=== PATIENT | female | born 2000 | race Caucasian/White ===

== ENCOUNTER 2021-05-14 23:10 | Emergency (ER) | payer BC, OTHER ==
[~2021-05-14 23:10] MED LIST: Sodium Chloride 0.9% 1,000 ML BAG ONE; Sodium Chloride 0.9% 500 ML BAG ONE
[2021-05-14] MEDS ORDERED: Morphine 4 MG/ML VIAL ONE (23:59)
[2021-05-14] MEDS ORDERED: Ondansetron PF 4 MG/2 ML Vial ONE (23:59)
[2021-05-14] MEDS ORDERED: Morphine 2 MG/ML VIAL ONE (23:59)
[2021-05-15 00:08] LABS: BHCG - Serum Negative (NEGATIVE); Pregs Control Background? CLEAR/WHITE (CLR/WHITE); Pregs Control Bar Appear? YES (CONTROL BAR)
[2021-05-15 00:14] LABS: #Basophils 0.1 thou/uL (0.0-0.2); #Eosinphils 0.1 thou/uL (0.0-0.7); #Lymphocytes 2.2 thou/uL (1.20-3.40); #Monocytes 0.6 thou/uL (0.11-0.59); #Neutrophils 6.9 thou/uL (1.40-6.50); %Basophils 1.4 % (0.0-1.0); %Eosinophils 0.8 % (0.0-10.0); %Lymphocytes 22.1 % (28.0-48.0); %Monocytes 5.7 % (0.0-4.0); Hemoglobin 14.3 g/dL (12.0-16.0); Mean Corpuscular HGB CONC 34.2 g/dL (32.0-36.0); Mean Corpuscular Hemoglobin 32.1 pg (25.0-35.0); Mean Platelet Volume 12.9 fL (7.4-10.4); Platelet Count 301 thou/uL (130-400); Platelet Morphology Comment Appears Adequate; RBC Distribution Width 10.7 % (11.5-14.5); RBC Morphology Normal; Red Blood Cell (RBC) Count 4.47 mill/uL (4.00-5.20); White Blood Cell (WBC) Count 9.9 thou/uL (4.8-10.8)
[2021-05-15 00:19] LABS: ALT (SGPT) 13 U/L (8-55); AST (SGOT) 16 U/L (5-34); Albumin 4.6 g/dL (3.5-5.0); Alkaline Phosphatase 80 U/L (40-100); Anion Gap 17 mmol/L (10-20); BUN (Urea Nitrogen) 17 mg/dL (7.0-18.7); Bilirubin, Total 0.4 mg/dL (0.2-1.2); Calc. Creatinine Clearance 0 mL/min (70-130); Carbon Dioxide 25 mmol/L (22-29); Chloride 102 mmol/L (98-107); Globulin 3.5 g/dL (2.4-3.5); Glucose 110 mg/dL (70-105); Lipase 98 U/L (8-78); Potassium 3.6 mmol/L (3.5-5.1); Protein, Total 8.1 g/dL (6.0-8.3); Sodium 140 mmol/L (136-145)
[2021-05-15] MEDS ORDERED: Morphine 4 MG/ML VIAL ONE (01:16)
== END 2021-05-15 02:56 | disposition home or self-care (01) ==
LOC: MADERS 23:10
DX: K86.1 Other chronic pancreatitis (principal); Z79.891 Long term (current) use of opiate analgesic; Z79.899 Other long term (current) drug therapy
CPT/HCPCS: 80053; 83690; 84703; 85025; 96374; 96375; 96376; J2270; J2405; J7030; J7050

== ENCOUNTER 2022-01-13 19:06 | Emergency (ER) | payer BC ==
[2022-01-13] MEDS ORDERED: Morphine 4 MG/ML VIAL ONE ×2 (19:33→21:50)
[2022-01-13] MEDS ORDERED: Prochlorperazine 10 MG/2 ML VIAL ONE (19:34)
[2022-01-13] MEDS ORDERED: Sodium Chloride 0.9% 1,000 ML ONE ×2 (19:34→21:09)
[2022-01-13 20:09] LABS: Band 7 % (5-11); Eosinophils 1 % (0-10); Hemoglobin 13.3 g/dL (12.0-16.0); Lymphocytes 17 % (21-51); MDiff Complete? YES; Mean Corpuscular HGB CONC 31.4 g/dL (32.0-36.0); Mean Corpuscular Hemoglobin 30.7 pg (27.0-31.0); Mean Corpuscular Volume 97.7 fL (78.0-98.0); Mean Platelet Volume 12.9 fL (7.4-10.4); Monocytes 5 % (0-10); Neutrophil 70 % (42-75); Platelet Count 329 thou/uL (130-400); Platelet Morphology Comment Appears Adequate; RBC Distribution Width 11.1 % (11.5-14.5); RBC Morphology Normal; Red Blood Cell (RBC) Count 4.32 mill/uL (4.20-5.40); White Blood Cell (WBC) Count 9.5 thou/uL (4.8-10.8)
[2022-01-13 20:17] LABS: ALT (SGPT) 9 U/L (8-55); AST (SGOT) 16 U/L (5-34); Albumin 4.7 g/dL (3.5-5.0); Alcohol Less than 10 mg/dL (Less than 10); Alkaline Phosphatase 75 U/L (40-110); Anion Gap 20 mmol/L (10-20); BUN (Urea Nitrogen) 13 mg/dL (7.0-18.7); Bilirubin, Total 0.5 mg/dL (0.2-1.2); Calc. Creatinine Clearance 0 mL/min (70-130); Calcium 9.4 mg/dL (7.8-10.44); Carbon Dioxide 21 mmol/L (22-29); Chloride 103 mmol/L (98-107); Globulin 3.1 g/dL (2.4-3.5); Glucose 83 mg/dL (70-105); Lipase 74 U/L (8-78); Potassium 3.7 mmol/L (3.5-5.1); Protein, Total 7.8 g/dL (6.0-8.3); Sodium 140 mmol/L (136-145)
[2022-01-13 21:10] LABS: Bilirubin Small (Negative); Blood, Urine Small (Negative); Clarity Clear (Clear); Glucose, Urine (Dipstick) Negative (Negative); Ketone, Urine > or equal to 80 mg/dL (Negative); Leukocyte Negative (Negative); Nitrite Negative (Negative); Protein, Urine (Dipstick) Negative (Neg-Trace); Urobilinogen 0.2 mg/dL (Less than 2)
[2022-01-13 21:16] LABS: Specific Gravity, Urine 1.031 (1.002-1.036)
[2022-01-13 21:19] LABS: Bacteria/HPF 1+ HPF (None Seen); RBC/HPF 0-3 HPF (0-3); Transitional Epithelial 0-3 HPF (None Seen)
[2022-01-13] MEDS ORDERED: Ondansetron PF 4 MG/2 ML Vial ONE (21:53)
[2022-01-13] MEDS ORDERED: Ketorolac Tromethamine 30 MG/ML VIAL ONE (21:53)
== END 2022-01-13 22:22 | disposition home or self-care (01) ==
LOC: MADERS 19:06
DX: K85.90 Acute pancreatitis without necrosis or infection, unspecified (principal); R11.2 Nausea with vomiting, unspecified
CPT/HCPCS: 80053; 80307; 81003; 81015; 83605; 83690; 84478; 85025; 96374; 96375; 96376; J0780; J1885; J2270; J2405; J7050

== ENCOUNTER 2022-08-10 10:10 | Emergency (ER) | payer BC ==
[~2022-08-10 10:10] MED LIST changes: +Lactated Ringer's 1,000 ML BAG ONE; -Sodium Chloride 0.9% 1,000 ML BAG ONE; -Sodium Chloride 0.9% 500 ML BAG ONE
[2022-08-10] MEDS ORDERED: Lactated Ringer's 2,000 ML ONE (10:58)
[2022-08-10] MEDS ORDERED: Ondansetron PF 4 MG/2 ML Vial ONE (10:58)
[2022-08-10 11:33] LABS: ALT (SGPT) 67 U/L (8-55); AST (SGOT) 35 U/L (5-34); Albumin 5.5 g/dL (3.5-5.0); Alkaline Phosphatase 206 U/L (40-110); BUN (Urea Nitrogen) 13 mg/dL (7.0-18.7); Bilirubin, Total 0.3 mg/dL (0.2-1.2); Calc. Creatinine Clearance 0 mL/min (70-130); Calcium 9.7 mg/dL (7.8-10.44); Carbon Dioxide Less than 8 mmol/L (22-29); Chloride 100 mmol/L (98-107); Estimated GFR 34; Globulin 4.3 g/dL (2.4-3.5); Lipase 7 U/L (8-78); Magnesium 2.5 mg/dL (1.6-2.6); Protein, Total 9.8 g/dL (6.0-8.3); Sodium 133 mmol/L (136-145)
[2022-08-10 11:34] LABS: Band 7 % (5-11); CK (CPK) 56 U/L (29-168); Lymphocytes 5 % (21-51); MDiff Complete? YES; Magnesium 2.5 mg/dL (1.6-2.6); Mean Corpuscular HGB CONC 32.9 g/dL (32.0-36.0); Mean Corpuscular Hemoglobin 31.8 pg (27.0-31.0); Mean Corpuscular Volume 96.6 fl (78.0-98.0); Mean Platelet Volume 12.3 fL (7.4-10.4); Monocytes 5 % (0-10); Neutrophil 83 % (42-75); Platelet Count 449 10x3/uL (130-400); Platelet Morphology Comment Appears Increased; RBC Distribution Width 10.9 % (11.5-14.5); RBC Morphology Normal; Red Blood Cell (RBC) Count 5.02 mill/uL (4.20-5.40)
[2022-08-10 11:37] LABS: Glucose 664 mg/dL (70-105); Potassium 6.2 mmol/L (3.5-5.1)
[2022-08-10] MEDS ORDERED: INSULIN REGULAR IN 0.9 % NACL 100 UNIT/100 ML BAG ONE (11:42)
[2022-08-10 11:49] LABS: Bilirubin Small (Negative); Blood, Urine Small (Negative); Glucose, Urine (Dipstick) 500 mg/dL (Negative); Ketone, Urine > or equal to 80 mg/dL (Negative); Leukocyte Negative (Negative); Nitrite Negative (Negative); Protein, Urine (Dipstick) 100 mg/dL (Neg-Trace); Urobilinogen 0.2 mg/dL (Less than 2); pH, Urine 5.5 (5.0-9.0)
[2022-08-10 11:51] LABS: Pregnancy Test - Urine (BHCG) Negative (Negative); Pregu Control Background? CLEAR/WHITE (CLR/WHITE); Pregu Control Bar Appear? YES (CONTROL BAR); Specific Gravity 1.025 (1.002-1.036)
[2022-08-10 11:52] LABS: Clarity Hazy (Clear); Specific Gravity, Urine 1.025 (1.002-1.036)
[2022-08-10 11:57] LABS: Bacteria/HPF 1+ HPF (None Seen); RBC/HPF 0-3 HPF (0-3); Squamous Epithelial 0-3 HPF (0-3); WBC/HPF None Seen HPF (0-3)
[2022-08-10 12:21] LABS: CO2 Tension (PvCO2) 22.5 mmHg (42.0-51.0)
[2022-08-10 12:22] LABS: vO2 Saturation-calc 97.8 % (60.0-85.0)
[2022-08-10 12:23] LABS: Potassium 6.1 mmol/L (3.5-5.1); Sodium 133 mmol/L (138-145)
[2022-08-10 12:24] LABS: Calcium, Ionized 1.13 mmol/L (1.15-1.33); Chloride 111 mmol/L (98-107); T. Carbon Dioxide Less than 5.0 mmol/L (22.0-28.0)
[2022-08-10 12:32] LABS: SARS-CoV-2 NAA Rapid Test Not Detected (NotDetected)
[2022-08-10 13:56] LABS: Lactic Acid 2.5 mmol/L (0.5-2.2)
== END 2022-08-10 14:28 | disposition short-term general hospital (02) ==
LOC: MADERS 10:10
DX: E11.10 Type 2 diabetes mellitus with ketoacidosis without coma (principal); N17.9 Acute kidney failure, unspecified; E87.5 Hyperkalemia; D72.829 Elevated white blood cell count, unspecified; Z79.4 Long term (current) use of insulin; Z20.822 Contact with and (suspected) exposure to COVID-19
CPT/HCPCS: 36416; 71045; 80053; 81003; 81015; 81025; 82010; 82330; 82550; 82803; 83605; 83690; 83735; 84100; 84484; 85025; 87040; 93005; 94760; 96361; 96365; 96366; 96375; J1815; J2405; J7120

== ENCOUNTER 2023-05-01 12:46 | Emergency (ER) | payer BC, OTHER ==
[~2023-05-01 12:46] MED LIST changes: -Lactated Ringer's 1,000 ML BAG ONE; +Sodium Chloride 0.9% 1,000 ML BAG ONE
[2023-05-01 13:21] LABS: Base Excess-Venous -0.7 mmol/L (-2.0 to 3.0); Bicarbonate (HCO3v) 24.7 mmol/L (22.0-28.0); CO2 Tension (PvCO2) 42.4 mmHg (42.0-51.0); Calcium, Ionized 1.11 mmol/L (1.15-1.33); Chloride 99 mmol/L (98-107); Lactic Acid 3.6 mmol/L (0.5-2.2); Potassium 3.2 mmol/L (3.5-5.1); Sodium 134 mmol/L (138-145); vO2 Saturation-calc 96.2 % (60.0-85.0)
[2023-05-01 13:23] LABS: %Neutrophils 65.6 % (42.0-75.0); Hemoglobin 13.7 g/dL (12.0-16.0); Mean Corpuscular HGB CONC 33.9 g/dL (32.0-36.0); Mean Corpuscular Hemoglobin 31.7 pg (27.0-31.0); Mean Corpuscular Volume 93.5 fl (78.0-98.0); Mean Platelet Volume 13.4 fL (7.4-10.4); Platelet Count 289 10x3/uL (130-400); RBC Distribution Width 10.9 % (11.5-14.5); Red Blood Cell (RBC) Count 4.34 mill/uL (4.20-5.40); White Blood Cell (WBC) Count 5.3 10x3/uL (4.8-10.8)
[2023-05-01 13:24] LABS: #Basophils 0.1 thou/uL (0.0-0.2); #Eosinphils 0.1 thou/uL (0.0-0.7); #Lymphocytes 1.5 thou/uL (1.20-3.40); #Monocytes 0.2 thou/uL (0.11-0.59); #Neutrophils 3.5 thou/uL (1.40-6.50); %Basophils 1.1 % (0.0-1.0); %Lymphocytes 28.9 % (21.0-51.0); %Monocytes 3.5 % (0.0-10.0)
[2023-05-01 13:28] LABS: ALT (SGPT) 644 U/L (8-55); AST (SGOT) 1540 U/L (5-34); Albumin 4.1 g/dL (3.5-5.0); Alkaline Phosphatase 156 U/L (40-110); Anion Gap 15 mmol/L (10-20); BUN (Urea Nitrogen) 12 mg/dL (7.0-18.7); Bilirubin, Total 0.3 mg/dL (0.2-1.2); Calc. Creatinine Clearance 0 mL/min (70-130); Calcium 8.8 mg/dL (7.8-10.44); Carbon Dioxide 24 mmol/L (22-29); Chloride 96 mmol/L (98-107); Estimated GFR 64; Globulin 2.8 g/dL (2.4-3.5); Potassium 3.3 mmol/L (3.5-5.1); Protein, Total 6.9 g/dL (6.0-8.3); Sodium 132 mmol/L (136-145)
[2023-05-01 13:30] LABS: Acetaminophen Less than 10 mcg/mL (10.0-30.0); Alcohol Less than 10.0 mg/dL (Less than 10); Lipase 22 U/L (8-78); Magnesium 1.9 mg/dL (1.6-2.6); Salicylate Less than 8.0 mg/dL (15.0-30.0)
[2023-05-01] MEDS ORDERED: Morphine 4 MG/ML VIAL ONE (13:33)
[2023-05-01 13:37] LABS: Glucose 458 mg/dL (70-105)
[2023-05-01] MEDS ORDERED: Ondansetron PF 4 MG/2 ML Vial ONE (13:40)
[2023-05-01] MEDS ORDERED: Boostrix 0.5 ML (Tdap) VIAL (>/=7 yrs of age) ONE (14:19)
[2023-05-01] MEDS ORDERED: Sodium Chloride 0.9% 1,000 ML ONE (14:41)
[2023-05-01] MEDS ORDERED: Morphine 2 MG/ML VIAL ONE (15:08)
[2023-05-01 15:14] LABS: Amphetamine Detected (NotDetected); Cocaine Metabolite Screen Not Detected (NotDetected); Methamphetamine Not Detected (NotDetected); Opiate Screen Detected (NotDetected); Phencyclidine (PCP) Not Detected (NotDetected); THC/Cannabinoid Screen Not Detected (NotDetected)
[2023-05-01 15:15] LABS: Barbiturates Screen Not Detected (NotDetected); Benzodiazepine Screen Not Detected (NotDetected); Methadone Not Detected (NotDetected); Oxycodone Screen Not Detected (NotDetected); Tricyclic Screen Not Detected (NotDetected)
[2023-05-01 18:27] LABS: Lactic Acid 1.2 mmol/L (0.5-2.2)
[2023-05-01] MEDS ORDERED: HYDROcodone/Acetaminophen 5/325 mg Tablet ONE ×2 (19:16→23:38)
[2023-05-02] MEDS ORDERED: HYDROcodone/Acetaminophen 5/325 mg Tablet ONE (05:07)
[2023-05-02 07:33] LABS: ALT (SGPT) 349 U/L (8-55); AST (SGOT) 402 U/L (5-34); Albumin 3.5 g/dL (3.5-5.0); Alkaline Phosphatase 116 U/L (40-110); Anion Gap 12 mmol/L (10-20); BUN (Urea Nitrogen) 10 mg/dL (7.0-18.7); Bilirubin, Total 0.2 mg/dL (0.2-1.2); Calc. Creatinine Clearance 0 mL/min (70-130); Calcium 8.5 mg/dL (7.8-10.44); Carbon Dioxide 23 mmol/L (22-29); Chloride 105 mmol/L (98-107); Estimated GFR 112; Globulin 2.2 g/dL (2.4-3.5); Glucose 379 mg/dL (70-105); Potassium 4.2 mmol/L (3.5-5.1); Protein, Total 5.7 g/dL (6.0-8.3); Sodium 136 mmol/L (136-145)
== END 2023-05-02 08:50 | disposition home or self-care (01) ==
LOC: MERGE 12:46 → MADERS 12:46
DX: S93.401A Sprain of unspecified ligament of right ankle, initial encounter (principal); R10.9 Unspecified abdominal pain; N17.9 Acute kidney failure, unspecified; E11.65 Type 2 diabetes mellitus with hyperglycemia; E87.20 Acidosis, unspecified; J93.9 Pneumothorax, unspecified; R74.01 Elevation of levels of liver transaminase levels; R74.8 Abnormal levels of other serum enzymes; Z79.4 Long term (current) use of insulin; V89.2XXA Person injured in unspecified motor-vehicle accident, traffic, initial encounter
CPT/HCPCS: 36416; 70450; 71045; 71260; 72125; 74177; 80053; 80306; 80307; 82010; 82330; 82803; 83605; 83690; 83735; 84484; 84702; 86850; 86900; 86901; 90715; 93005; 96361; 96374; 96375; 96376; G0390; J2270; J2272; J2405; J7050